=== PATIENT | male | born 1995 | race Caucasian/White ===

== ENCOUNTER 2017-04-23 19:13 | Emergency (ER) | payer OTHER ==
[2017-04-23 19:23] VITALS: BP 134/74
--- NOTE | 2017-04-23 19:38 | UC ---
Respiratory Complaint HPI - HPI Summary HPI Summary: 21 year old male presents with complains of sore throat, shortness of breath and chest tightness. - History of Current Complaint Chief Complaint: UCRespiratory Stated Complaint: DIZZY, CHEST TIGHTNESS,COUGH,ST Time Seen by Provider: 04/23/17 19:17 - Allergies/Home Medications Allergies/Adverse Reactions: Allergies Allergy/AdvReac Type Severity Reaction Status Date / Time Cefprozil [From Cefzil] Allergy Unknown Verified 12/08/12 01:14 Reaction Details Home Medications: Home Medications Phenylephrine-Chlorpheniramine [Jennifer-Stevenson Plus Cold & 5-2-10-325 mg] 1 cap PO 04/23/17 [History] PMH/Surg Hx/FS Hx/Imm Hx - Surgical History Surgical History: Yes Surgery Procedure, Year, and Place: 2011 [place] teeth removal. EAR TUBES. TONSILS - Family History Known Family History: Positive: None Family History: no cardio vascular issues in family lineage - Social History Alcohol Use: None Substance Use Type: None Smoking Status (MU): Heavy Every Day Tobacco Smoker Type: eCigarettes Amount Used/How Often: LITTLE LESS THAN 1 PPD Have You Smoked in the Last Year: Yes - Immunization History Vaccination Up to Date: Yes Review of Systems Constitutional: Negative Skin: Negative Eyes: Negative ENT: Sore Throat, Sinus Congestion, Sinus Pain/Tenderness Respiratory: Shortness Of Breath, Cough Cardiovascular: Negative Gastrointestinal: Negative Genitourinary: Negative Motor: Negative Neurovascular: Negative Musculoskeletal: Negative Neurological: Negative Psychological: Negative All Other Systems Reviewed And Are Negative: Yes Physical Exam Triage Information Reviewed: Yes Vital Signs: Initial Vital Signs Temp 36.7 C 04/23/17 19:18 Pulse 44 04/23/17 19:18 Resp 18 04/23/17 19:18 BP 134/74 04/23/17 19:18 Pulse Ox 100 04/23/17 19:18 Eye Exam: Normal ENT: Positive: Pharyngeal erythema Dental Exam: Normal Neck exam: Normal Neck: Positive: 1 Respiratory: Positive: Decreased breath sounds Cardiovascular Exam: Normal Abdominal Exam: Normal Musculoskeletal Exam: Normal Neurological Exam: Normal Psychological Exam: Normal Skin Exam: Normal UC Diagnostic Evaluation - Laboratory O2 Sat by Pulse Oximetry: 100 Respiratory Course/Dx - Differential Dx/Diagnosis Provider Diagnoses: chest tightness. sore throat Discharge - Discharge Plan Condition: Stable Disposition: HOME Prescriptions: Albuterol HFA INHALER* [Ventolin HFA Inhaler*] 1 puff INH Q6H PRN #1 mdi PRN Reason: Wheezing Azithromyxin FIDENCIO (NF) [Z-Fidencio (Zithromax) 250 mg tabs #6] 2 tab PO .TODAY, THEN 1 DAILY #6 tab LoraTADine TAB(NF) [Claritin 10 MG TAB(NF)] 10 mg PO DAILY #30 tab Magic M W2 Stephen/Maal/Nyst/Lido* 15 ml SWISH SPIT QID #120 ml Patient Education Materials: Pharyngitis (ED) Referrals: Lindsay Viera MD [Primary Care Provider] - If Needed
== END 2017-04-23 19:49 | disposition home or self-care (01) ==
LOC: UCEAST 19:13
DX: R07.89 Other chest pain (principal); J02.9 Acute pharyngitis, unspecified; Z72.0 Tobacco use
CPT/HCPCS: 87651; 99212; G0463

== ENCOUNTER 2017-07-21 04:11 | Emergency (ER) | payer OTHER ==
[2017-07-21 05:56] VITALS: BP 126/87
== END 2017-07-21 06:09 | disposition left against medical advice (07) ==
LOC: ED 04:11
DX: R51 Headache (principal); Z53.21 Procedure and treatment not carried out due to patient leaving prior to being seen by health care provider

== ENCOUNTER 2017-08-29 05:27 | Emergency (ER) | payer SELFPAY ==
[2017-08-29 05:34] VITALS: BP 171/88
[2017-08-29] MEDS ORDERED: Tetan/Diph/Pertus SYR(Tdap)* 0.5 ML SYR(BOOSTRIX) use SYR IM ONE (05:48)
[2017-08-29] MEDS ORDERED: Benzoin Compound STICK ONE (06:54)
--- NOTE | 2017-08-29 07:49 | RAD ---
HISTORY: Laceration, foreign body, left hand COMPARISONS: August 07, 2010 VIEWS: 2, Frontal and lateral views of the left hand FINDINGS: BONE DENSITY: Normal. BONES: There is no displaced fracture. JOINTS: There is no arthropathy. ALIGNMENT: There is no dislocation. SOFT TISSUES: Unremarkable. OTHER FINDINGS: There is no radiopaque foreign body IMPRESSION: NO ACUTE OSSEOUS INJURY. IF SYMPTOMS PERSIST, RECOMMEND REPEAT IMAGING.
--- NOTE | 2017-08-30 09:19 | ED ---
Ghassan Mancera Nikita, scribed for Domo Hensley MD on 08/29/17 at 0544 . Laceration/Wound HPI - HPI Summary HPI Summary: This patient is a 22 year old M presenting to ED with a chief complaint of L middle finger laceration since 414. Pt reports he was throwing out garbage when he was cut from something inside the bag. The patient rates the pain 0/10 in severity. Symptoms aggravated by nothing. Symptoms alleviated by nothing. Pt is unsure of his last tetanus shot. Pt is R-handed. - History of Current Complaint Stated Complaint: LT MIDDLE FINGER LAC Hx Obtained From: Patient Mechanism of Injury: Sharp/Blunt Trauma Onset/Duration: Sudden Onset, Lasting Minutes, Still Present Aggravating: Nothing Alleviating: Nothing Current Severity: None Pain Intensity: 0 Pain Scale Used: 0-10 Numeric - Allergy/Home Medications Allergies/Adverse Reactions: Allergies Allergy/AdvReac Type Severity Reaction Status Date / Time Cefprozil [From Cefzil] Allergy Unknown Verified 07/21/17 04:26 Reaction Details PMH/Surg Hx/FS Hx/Imm Hx Endocrine/Hematology History: Denies: Hx Diabetes, Hx Thyroid Disease Cardiovascular History: Denies: Hx Hypertension Respiratory History: Reports: Hx Asthma - CHILDHOOD Denies: Hx Chronic Obstructive Pulmonary Disease (COPD) GI History: Denies: Hx Ulcer - Surgical History Surgery Procedure, Year, and Place: 2011 [place] teeth removal. EAR TUBES. TONSILS Infectious Disease History: Yes Infectious Disease History: Denies: Hx Hepatitis, Hx Human Immunodeficiency Virus (HIV), Traveled Outside the [place] in Last 30 Days - Family History Known Family History: Positive: Cardiac Disease, Hypertension, Diabetes Family History: no cardio vascular issues in family lineage - Social History Alcohol Use: None Substance Use Type: Reports: None Smoking Status (MU): Heavy Every Day Tobacco Smoker Type: eCigarettes Amount Used/How Often: LITTLE LESS THAN 1 PPD Have You Smoked in the Last Year: Yes Review of Systems Negative: Fever Positive: Other - L middle finger laceration All Other Systems Reviewed And Are Negative: Yes Physical Exam Triage Information Reviewed: Yes Vital Signs On Initial Exam: Initial Vitals Temp Pulse Resp BP Pulse Ox 97 F 55 16 171/88 97 08/29/17 05:31 08/29/17 05:31 08/29/17 05:31 08/29/17 05:31 08/29/17 05:31 Vital Signs Reviewed: Yes Appearance: Positive: Well-Appearing, Well-Nourished Skin: Positive: Warm, Other - palmar, L middle finger, middle pharynx laceration of about 1 cm; no evidence of tendon injury. normal ROM, normal strength. skin well opposed Head/Face: Positive: Normal Head/Face Inspection Eyes: Positive: Normal ENT: Positive: Normal ENT inspection Neck: Positive: Supple, Nontender Respiratory/Lung Sounds: Positive: Clear to Auscultation Cardiovascular: Positive: Normal Abdomen Description: Positive: Nontender, Soft Bowel Sounds: Positive: Present Musculoskeletal: Positive: Normal, Strength/ROM Intact Neurological: Positive: Normal, Alert, Oriented to Person Place, Time Psychiatric: Positive: Affect/Mood Appropriate Procedures - Laceration/Wound Repair 1 Location: upper extremity Description: Linear Length, Depth and Shape: left middle finger volar surface no joint involvement Betadine Prep?: Yes Laceration/Wound Explored: clean Closure: Skin Adhesive Diagnostics - Vital Signs Vital Signs Temp Pulse Resp BP Pulse Ox 08/29/17 05:31 97 F 55 16 171/88 97 - Laboratory Lab Statement: Any lab studies that have been ordered have been reviewed, and results considered in the medical decision making process. - Radiology L hand XR Radiology Interpretation Completed By: ED Physician - No evidence of fracture or dislocation. Laceration Repair Course/Dx - Course Assessment/Plan: Laceration is superficial, skin well opposed, neurovascular intact, dressed with steri strips. Pt agrees to and understands discharge instructions. - Differential Dx Differental Diagnoses: Other - finger laceration - Clinical Impression Provider Diagnoses: Finger laceration Discharge - Discharge Plan Condition: Stable Disposition: HOME Patient Education Materials: Finger Laceration (ED) Referrals: Lindsay Viera MD [Primary Care Provider] - 7 Days Additional Instructions: PLEASE RETURN TO THE ED FOR ANY WORSENING OR CONCERNING SYMPTOMS. PLEASE MAKE AN APPOINTMENT TO SEE YOUR PRIMARY CARE DOCTOR TO BE SEEN WITHIN 1 WEEK. The documentation as recorded by the Ghassan holder Nikita accurately reflects the service I personally performed and the decisions made by , Domo Hensley MD.
== END 2017-08-29 07:07 | disposition home or self-care (01) ==
LOC: ED 05:27
DX: S61.213A Laceration without foreign body of left middle finger without damage to nail, initial encounter (principal); W45.8XXA Other foreign body or object entering through skin, initial encounter; Y93.9 Activity, unspecified; Y92.9 Unspecified place or not applicable
CPT/HCPCS: 90471; 90715; 99281